=== PATIENT | male | born 1990 | race Two or more races ===

== ENCOUNTER 2020-03-10 20:55 | Emergency (ER) | payer OTHER ==
[~2020-03-10] VITALS: Ht 157.5 cm; Wt 99.3 kg
[2020-03-10 23:01] VITALS: BP 144/89
== END 2020-03-10 23:23 | disposition home or self-care (01) ==
LOC: ER 20:55
DX: S62.396G Other fracture of fifth metacarpal bone, right hand, subsequent encounter for fracture with delayed healing (principal); M79.641 Pain in right hand; X58.XXXD Exposure to other specified factors, subsequent encounter
CPT/HCPCS: 73130

== ENCOUNTER → 2020-04-19 | Emergency (ER) | payer OTHER ==
[~2020-04-19] VITALS: Ht 175.3 cm; Wt 90.7 kg
[~2020-04-19] MED LIST: ETOMIDATE (2MG/ML) 20ML VIAL IV ONE; HALOPERIDOL LACTATE 5 MG/ML INJ VIAL IM ONE; HYDROmorphone HCL 2 MG/ML VL IV ONE; LORazepam 2MG/ML-1ML VIAL IM ONE; SODIUM CHLORIDE 0.9% 1,000 ML IV ONE; SODIUM CHLORIDE 0.9% 2,000 ML IV ONE; THIAMINE 100mg/ml INJ (200mg/2ml VIAL) IV ONE; diphenhdrAMINE HCL 50 MG/1 ML VL IM ONE
[2020-04-19 21:26] LABS: Basophils # (auto) 0.1 10 ^3/uL (0-0.2); Eosinophils # (auto) 0 10 ^3/uL (0-0.8); Hematocrit 43.1 % (41.0-53.0); Monocytes # (auto) 0.2 10 ^3/uL (0-1.3); Nucleated Red Blood Cells % 0.1 %
[2020-04-19 21:28] LABS: Basophils % (auto) 0.8 % (0.0-2.0); Eosinophils % (auto) 0.3 % (0.0-7.0); Lymphocytes # (auto) 1.1 10 ^3/uL (0.4-5.4); Lymphocytes % (auto) 17.3 % (10.0-50.0); Mean Corpuscular Hemoglobin 27.1 pg (28.0-32.0); Mean Corpuscular Hgb Conc. 32.4 g/dL (32.0-36.0); Mean Corpuscular Volume 83.8 fL (80.0-100.0); Monocytes % (auto) 3.4 % (0.0-12.0); Neutrophils # (auto) 5.1 10 ^3/uL (1.6-8.6); Neutrophils % (auto) 78.2 % (37.0-80.0); Platelet Count (auto) 293 10^3/uL (140-450); Red Blood Cells 5.15 10^6/uL (4.5-5.90); Red Cell Distribution Width 14.2 % (11.8-14.3); White Blood Cell 6.5 10^3/uL (4.4-10.8)
[2020-04-19 21:43] LABS: Calcium 8.7 mg/dL (8.5-10.1); Potassium 3.7 mmol/L (3.5-5.1)
[2020-04-19 21:47] LABS: BUN/Creatinine Ratio 12.4; Bilirubin, Total 0.2 mg/dL (0.2-1.0); Total Protein 8.3 g/dL (6.4-8.2)
[2020-04-19 22:43] LABS: INR 1.05 (0.9-1.15); Partial Thromboplastin Time 20.3 sec (23.0-31.2)
[2020-04-20 02:43] VITALS: BP 99/51
== END | disposition home or self-care (01) ==
LOC: EDUNIT# 20:06 → EDBD 20:25 → ER 20:27
DX: R41.82 Altered mental status, unspecified (principal); G92 Toxic encephalopathy; F10.129 Alcohol abuse with intoxication, unspecified; Y90.9 Presence of alcohol in blood, level not specified
CPT/HCPCS: 36415; 74176; 80053; 80320; 85025; 85610; 85730; 86850; 86900; 86901; 96361; 96372; 96374; 99285; J1200; J1630; J2060; J3411; J7030